=== PATIENT | female | born 1940 | race Caucasian/White ===

== ENCOUNTER 2025-02-04 10:15 | Inpatient (IN) ==
[2025-02-04] MEDS: diphenhydrAMINE 50 MG/ML VIAL IV ONE (10:42)
[2025-02-04 10:50] LABS: Basophils # (Auto) 0.03 K/mcL (0.00-0.30); Basophils % (Auto) 0.2 % (0.0-2.0); Eosinophils # (Auto) 0.08 K/mcL (0.00-0.70); Eosinophils % (Auto) 0.6 % (0.0-7.0); Hematocrit 35.2 % (34.1-44.9); Hemoglobin 11.2 g/dL (11.2-15.7); Lymphocytes % (Auto) 7.2 % (15.5-49.0); Mean Cell Volume 92.6 fL (80.0-100.0); Mean Corpuscular HGB Conc 31.8 g/dL (31.0-36.0); Mean Platelet Volume 10.9 fL (8.8-12.5); Monocytes # (Auto) 0.67 K/mcL (0.10-0.90); Monocytes % (Auto) 4.8 % (1.0-12.0); Neutrophils % (Auto) 86.8 % (38.0-78.0); Platelet Count 172 K/mcL (140-440); Red Cell Distribution Width 13.2 % (11.5-14.5); WBC 13.9 K/mcL (4.5-11.0)
[2025-02-04 11:00] LABS: Prothrombin Time 13.8 sec (11.9-14.5)
[2025-02-04 11:40] LABS: ALT/SGPT 12 U/L (<40); AST/SGOT 26 U/L (<32); Albumin 3.7 gm/dL (3.2-5.2); Albumin/Globulin Ratio 1.5 (1.0-2.3); Alkaline Phosphatase 52 U/L (39-117); Bilirubin,Total 0.5 mg/dL (0.1-1.0); Blood Urea Nitrogen 15 mg/dL (8-23); Calcium 8.9 mg/dL (8.6-10.4); Carbon Dioxide 23 mmol/L (22-30); Chloride 98 mmol/L (96-108); Globulin 2.5 gm/dL (2.2-3.7); Glomerular Filtration Rate 51; Glucose 148 mg/dL (70-105); Potassium 4.4 mmol/L (3.3-5.1); Sodium 133 mmol/L (133-145)
[2025-02-04 11:42] LABS: Appearance,Urine Clear (Clear); Bilirubin,Urine Negative (Negative); Color,Urine Yellow; Glucose,Urine (UA) Negative (Negative); Ketones,Urine Negative (Negative); Leukocyte Esterase,Urine Negative /uL (Negative); Nitrate,Urine Negative (Negative); Protein,Urine Negative (Negative); Specific Gravity,Urine 1.015 (1.000-1.035); Urine Blood Negative ery/mcL (Negative); Urine RBC 0 /hpf (0-3); Urine Squamous Epithelial Cell 2 /hpf (0-4); Urine WBC 0 /hpf (0-4); Urobilinogen,Urine Normal
[2025-02-04] MEDS: 0.9 % SODIUM CHLORIDE 500 ML IV ONE (12:24)
[2025-02-04] MEDS: ACETAMINOPHEN 325 MG TABLET PO ONE (12:59)
[2025-02-04] MEDS: AZITHROMYCIN 500 MG in 0.9 % SODIUM CHLORIDE 250 ML IV ONE (14:09)
[2025-02-04] MEDS: cefTRIAXone 1 GM VIAL IV ONE (14:15)
[2025-02-04] MEDS: LORazepam 2 MG/ML VIAL IV ONE (15:11)
[2025-02-04] MEDS ORDERED: SENNOSIDES 1 TABLET PO PRN (16:12)
[2025-02-04] MEDS ORDERED: ONDANSETRON 4 MG/2 ML VIAL IV PRN (16:12)
[2025-02-04] MEDS ORDERED: DEXTROSE 31 GM ORAL.SUSP PO PRN (16:12)
[2025-02-04] MEDS ORDERED: DEXTROSE 50% 50 ML VIAL IV PRN (16:12)
[2025-02-04] MEDS ORDERED: LACTULOSE 20 GM/30 ML ORAL.SOL PO PRN (16:12)
[2025-02-04] MEDS: INSULIN LISPRO 1 UNIT/0.01 ML UNIT SQ SCH (16:14)
[2025-02-04] MEDS: 0.9 % SODIUM CHLORIDE 1,000 ML IV SCH (16:30)
[2025-02-04] MEDS: AZITHROMYCIN 500 MG in 0.9 % SODIUM CHLORIDE 250 ML IV SCH (16:58)
[2025-02-04] MEDS ORDERED: IOPAMIDOL 100 ML BOTTLE IV ONE (17:41)
[2025-02-04] MEDS: ACETAMINOPHEN 325 MG TABLET PO PRN (20:11)
[2025-02-04] MEDS: 0.9 % SODIUM CHLORIDE 10 ML SYRINGE IV SCH (20:16)
[2025-02-04] MEDS: DOCUSATE SODIUM 100 MG CAPSULE PO SCH (20:16)
[2025-02-05 06:02] LABS: Basophils # (Auto) 0.01 K/mcL (0.00-0.30); Basophils % (Auto) 0.1 % (0.0-2.0); Eosinophils # (Auto) 0.02 K/mcL (0.00-0.70); Eosinophils % (Auto) 0.1 % (0.0-7.0); Hematocrit 37.6 % (34.1-44.9); Hemoglobin 11.9 g/dL (11.2-15.7); Lymphocytes # (Auto) 1.49 K/mcL (1.50-4.80); Lymphocytes % (Auto) 8.3 % (15.5-49.0); Mean Cell Volume 92.6 fL (80.0-100.0); Mean Corpuscular HGB Conc 31.6 g/dL (31.0-36.0); Mean Platelet Volume 10.7 fL (8.8-12.5); Monocytes # (Auto) 0.89 K/mcL (0.10-0.90); Neutrophils % (Auto) 86.1 % (38.0-78.0); Platelet Count 184 K/mcL (140-440); RBC 4.06 M/mcL (3.59-5.38); Red Cell Distribution Width 13.3 % (11.5-14.5); WBC 17.9 K/mcL (4.5-11.0)
[2025-02-05 06:20] LABS: ALT/SGPT 10 U/L (<40); AST/SGOT 19 U/L (<32); Albumin 3.8 gm/dL (3.2-5.2); Albumin/Globulin Ratio 1.4 (1.0-2.3); Alkaline Phosphatase 53 U/L (39-117); Bilirubin,Direct 0.3 mg/dL (<0.3); Bilirubin,Total 0.6 mg/dL (0.1-1.0); Blood Urea Nitrogen 16 mg/dL (8-23); Calcium 9.3 mg/dL (8.6-10.4); Carbon Dioxide 28 mmol/L (22-30); Chloride 101 mmol/L (96-108); Globulin 2.7 gm/dL (2.2-3.7); Glomerular Filtration Rate 51; Glucose 106 mg/dL (70-105); Lactate Dehydrogenase 181 U/L (135-225); Phosphorous 3.7 mg/dL (2.5-4.5); Potassium 3.9 mmol/L (3.3-5.1); Sodium 138 mmol/L (133-145); Triglycerides 68 mg/dL (<150); Uric Acid 4.9 mg/dL (2.5-8.0)
[2025-02-05] MEDS ORDERED: HYDROcodone/APAP (PP) 7.5/325MG TABLET (#4) PO PRN (08:29)
[2025-02-05] MEDS: HYDROCODONE/APAP 7.5/325MG TABLET PO PRN (09:18)
[2025-02-05] MEDS: LOSARTAN 50 MG TABLET PO SCH (09:19)
[2025-02-05] MEDS: ASPIRIN 81 MG TAB.CHEW PO SCH (09:19)
[2025-02-05] MEDS: FUROSEMIDE 20 MG TABLET PO SCH (09:19)
[2025-02-05] MEDS: POTASSIUM CHLORIDE 10 MEQ TABLET PO SCH (09:19)
[2025-02-05] MEDS: OMEPRAZOLE 20 MG CAPSULE PO SCH (09:19)
[2025-02-05] MEDS: cefTRIAXone 1 GM VIAL IV SCH (09:20)
[2025-02-05] MEDS: ENOXAPARIN 40 MG/0.4 ML SYRINGE SQ SCH (09:20)
[2025-02-05] MEDS: amLODIPine 5 MG TABLET PO SCH (09:20)
[2025-02-05] MEDS: DULoxetine 20 MG CAPSULE PO SCH (20:55)
[2025-02-06 06:04] LABS: Basophils # (Auto) 0.02 K/mcL (0.00-0.30); Basophils % (Auto) 0.2 % (0.0-2.0); Eosinophils # (Auto) 0.28 K/mcL (0.00-0.70); Eosinophils % (Auto) 2.2 % (0.0-7.0); Hematocrit 32.2 % (34.1-44.9); Hemoglobin 10.3 g/dL (11.2-15.7); Lymphocytes # (Auto) 1.18 K/mcL (1.50-4.80); Lymphocytes % (Auto) 9.3 % (15.5-49.0); Mean Cell Volume 91.7 fL (80.0-100.0); Mean Platelet Volume 11.1 fL (8.8-12.5); Monocytes # (Auto) 0.67 K/mcL (0.10-0.90); Monocytes % (Auto) 5.3 % (1.0-12.0); Neutrophils % (Auto) 82.8 % (38.0-78.0); Platelet Count 164 K/mcL (140-440); RBC 3.51 M/mcL (3.59-5.38); Red Cell Distribution Width 13.1 % (11.5-14.5); WBC 12.7 K/mcL (4.5-11.0)
[2025-02-06] MEDS ORDERED: HYDROmorphone 0.5 MG/0.5 ML SYRINGE IV PRN (10:46)
[2025-02-06] MEDS: oxyCODONE IR 5 MG TABLET PO PRN (14:06)
[2025-02-06] MEDS: CYCLOBENZAPRINE 10 MG TABLET PO PRN (14:07)
[2025-02-06 14:21] LABS: Hematocrit 35.2 % (34.1-44.9); Hemoglobin 11.1 g/dL (11.2-15.7)
[2025-02-07 11:59] VITALS: TEMP 98.6; O2SAT 93
== END 2025-02-07 14:36 | DRG 193 ==
LOC: ED 10:15 → ICU 15:50 → MEDSUR 02-05 15:52
PROVIDERS: ADMIT Internal Medicine; ATTEND Internal Medicine